=== PATIENT | female | born 1965 | race Caucasian/White ===

== ENCOUNTER 2016-12-25 23:15 | Emergency (ER) | payer BC ==
[2016-12-25] MEDS ORDERED: Sodium Chloride 0.9% 1,000 ML ONE (23:24)
[2016-12-25] MEDS ORDERED: Dexamethasone 10 MG/ML SDV IVPUSH ONE (23:28)
[2016-12-25] MEDS ORDERED: Sodium Chloride 0.9% 1,000 ML IV ONE (23:28)
[2016-12-25] MEDS ORDERED: Sodium Chloride 0.9% 5 ML Syringe FLUSH PRN (23:29)
--- NOTE | 2016-12-25 23:35 | EDM.PDOC ---
ED HPI Allergic Reaction - General Chief Complaint: Allergic Reaction Stated Complaint: ALLERGIC REACTION Time Seen by Provider: 12/25/16 23:28 Source of Information: Reports: Patient History Limitations: Reports: No limitations - History of Present Illness INITIAL COMMENTS - FREE TEXT/NARRATIVE: PT STATES AT APPROX 2215 SHE ATE PEANUT BUTTER AND IMMEDIATELY FELT A WARM SENSATION OVER HER BODY AND FELT TIGHTNESS IN THROAT. LOOKED IN MIRROR AND SKIN WAS RED. CALLED 911. EMT ARRIVED AND ADMINISTERED EPI AND BENADRYL 45 MINUTES AGO. SYMPTOMS SUBSIDED AT THAT TIME. PT DENIES FEVER, N/V/D, CP, SOB, OR SIMILAR REACTION IN PAST. Timing/Duration: Reports: Minutes: Location, Skin: Reports: generalized Characteristics: Reports: erythematous Associated features: Reports: warmth Quality: Reports: Burning Severity: mild Known identified source: yes When: prior to symptom onset Place of Occurrence: home Exposure (offending agent or antigen): Reports: food (shellfish,eggs,peanuts, nuts,soy,milk) Sick Contact: no Associated Symptoms: Reports: no other symptoms. 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 Constitutional: Reports: no symptoms HEENT: Reports: Throat pain Respiratory: Reports: no symptoms Cardiovascular: Reports: No symptoms Endocrine: Reports: no symptoms GI/Abdominal: Reports: No symptoms : Reports: no symptoms Musculoskeletal: Reports: no symptoms Skin: Reports: rash Neurological: Reports: no symptoms Psychiatric: Reports: No symptoms Hematologic/Lymphatic: Reports: no symptoms Immunologic: Reports: food allergy ED EXAM GENERAL NO PERIP PULSE - Physical Exam Exam: See Below Exam Limited By: No limitations General Appearance: alert, WD/WN, no apparent distress Eye Exam: bilateral eye: normal inspection Nose: normal inspection, normal mucosa, no blood Throat/Mouth: Normal inspection, Normal lips, Normal oropharynx, Normal voice, No airway compromise. No: Inflammation Head: No: facial swelling Neck: normal inspection, supple Respiratory/Chest: no respiratory distress, lungs clear, normal breath sounds, no accessory muscle use, chest non-tender Cardiovascular: no murmur, tachycardia GI/Abdominal: normal bowel sounds, soft, non tender Back Exam: normal inspection Extremities: normal inspection, no pedal edema Neurological: alert, oriented, normal cognition Psychiatric: normal affect, normal mood Skin Exam: Warm, Dry, Intact, Normal color, No rash Lymphatic: no adenopathy Course - Orders/Labs/Meds Orders: Active Orders 24 hr Category Date Time Status Peripheral IV Care [RC] . DIRECTED Care 12/25/16 23:29 Ordered Dexamethasone Med 12/25/16 23:28 Once 8 mg IVPUSH ONETIME ONE Sodium Chloride 0.9% @ 999 MLS/HR (1000ml) Med 12/25/16 23:28 Ordered Sodium Chloride 0.9% [Normal Saline] 1,000 ml IV .BOLUS Sodium Chloride 0.9% [Syrex Flush] Med 12/25/16 23:29 Ordered 5 ml FLUSH Q8HR PRN Peripheral IV Insertion Adult [OM.PC] Routine Oth 12/25/16 23:29 Ordered Meds: Medications Discontinued Medications Generic Name Dose Route Start Last Admin Trade Name Freq PRN Reason Stop Dose Admin Sodium Chloride Confirm 12/25/16 23:24 Normal Saline Administered 12/25/16 23:25 Dose 1,000 mls @ as directed .ROUTE .STK-MED ONE Departure - Departure Time of Disposition: 00:08 Disposition: Home, Self-Care 01 Condition: good Clinical Impression: Allergic reaction to food Qualifiers: Encounter type: initial encounter Qualified Code(s): T78.1XXA - Other adverse food reactions, not elsewhere classified, initial encounter Instructions: Food Allergy, Anaphylactic Reaction, [id number] Additional Instructions: FOLLOW UP WITH PCP IN 3 DAYS. RETURN TO ER SOONER IF SYMPTOMS RETURN - My Orders Last 24 Hours: My Active Orders 12/25/16 23:28 Dexamethasone 8 mg IVPUSH ONETIME ONE Sodium Chloride 0.9% @ 999 MLS/HR (1000ml) Sodium Chloride 0.9% [Normal Saline] 1,000 ml IV .BOLUS 12/25/16 23:29 Peripheral IV Care [RC] . DIRECTED Sodium Chloride 0.9% [Syrex Flush] 5 ml FLUSH Q8HR PRN Peripheral IV Insertion Adult [OM.PC] Routine - Assessment/Plan Last 24 Hours: My Active Orders 12/25/16 23:28 Dexamethasone 8 mg IVPUSH ONETIME ONE Sodium Chloride 0.9% @ 999 MLS/HR (1000ml) Sodium Chloride 0.9% [Normal Saline] 1,000 ml IV .BOLUS 12/25/16 23:29 Peripheral IV Care [RC] . DIRECTED Sodium Chloride 0.9% [Syrex Flush] 5 ml FLUSH Q8HR PRN Peripheral IV Insertion Adult [OM.PC] Routine Assessment:: ALLERGIC REACTION TO FOOD Plan: RETURN TO ER IF RASH, ITCHING, OR SCRATCHY THROAT DEVELOPS. FOLLOW UP WITH YOUR PCP IN 3 DAYS
[2016-12-25 23:57] VITALS: BP 116/66
== END 2016-12-26 00:25 | disposition home or self-care (01) ==
LOC: KA.ED 23:15
DX: T78.1XXA Other adverse food reactions, not elsewhere classified, initial encounter (principal); L53.9 Erythematous condition, unspecified
CPT/HCPCS: 96361; 96374; 99283; J1100; J7030